=== PATIENT | female | born 1990 | race Caucasian/White ===

== ENCOUNTER 2018-09-27 20:50 | Inpatient (IN) | payer BC, OTHER ==
[2018-09-27] MEDS ORDERED: DINOPROSTONE 10 MG VAGINAL SUPPOSITORY VG ONE (21:30)
[2018-09-27 22:57] VITALS: BMI 37.9
[2018-09-27 23:12] LABS: BASO % 0.1 % (0-2.0); EOS % 1.3 % (0-4.5); HEMATOCRIT 38.1 % (32.4-45.2); HEMOGLOBIN 12.7 GM/dL (10.7-15.3); LYMPH % 31.4 % (8-40); MCHC 33.3 g/dl (32.0-36.0); MEAN CELL VOLUME 86.9 fl (80-96); MEAN PLT VOLUME 9.8 fl (7.5-11.1); MONO % 8.2 % (3.8-10.2); PLATELET COUNT 222 K/MM3 (134-434); RBC 4.39 M/mm3 (3.60-5.2); RDW 14.8 % (11.6-15.6); WHITE BLOOD COUNT 9.6 K/mm3 (4.0-10.0)
[2018-09-27 23:26] LABS: INR 0.99 (0.83-1.09); PROTHROMBIN TIME (PATIENT) 11.7 SEC (9.7-13.0)
[2018-09-27 23:28] LABS: ACTIVATED PTT 28.4 SECONDS (25.2-36.5)
[2018-09-27 23:35] LABS: ANION GAP 9 MMOL/L (8-16); BLOOD UREA NITROGEN 9 mg/dL (7-18); CALCIUM 8.7 mg/dL (8.5-10.1); CHLORIDE 107 mmol/L (98-107); CO2 22 mmol/L (21-32); CREATININE 0.6 mg/dL (0.55-1.3); GLUCOSE,RANDOM 95 mg/dL (74-106); POTASSIUM 3.8 mmol/L (3.5-5.1); SODIUM 138 mmol/L (136-145)
[2018-09-28] MEDS ORDERED: PROMETHAZINE HCL 25 MG/1 ML VIAL IVPUSH ONE (07:17)
[2018-09-28] MEDS ORDERED: BUTORPHANOL TARTRATE 1 MG/ML VIAL IVPB ONE (07:17)
[2018-09-28] MEDS ORDERED: TUBERCULIN PPD 5 TU/0.1ML SYRINGE (IN PATIENT USE ONLY) ID ONE (09:15)
--- NOTE | 2018-09-28 09:49 | HP ---
Past Medical History - Admission Chief Complaint: Here for labor induction History of Present Illness: 27 y/o with SIUP at 40.1 weeks here for elective IOL. Admitted overnight, cervidil placed by covering physician, cervix was closed. complicated only by GBS positivity. History Source: Patient, Medical Record Limitations to Obtaining History: No Limitations - Past Medical History [employer] ASSOCIATE: No: Migraine Cardiovascular: No: CAD, HTN Pulmonary: No: COPD, Sleep Apnea Gastrointestinal: No: GERD, Inflamatory Bowel Disease, Irritable Bowel Disease ...: 2 ...Para: 0 ...Term: 0 ...: 0 ...Spon : 0 ...Induced : 1 ...LMP: 12/27/17 ... Weeks Gestation by Dates: 39.1 ...EDC by Dates: 10/03/18 ...EDC by Sono: 09/26/18 Heme/Onc: No: Anemia Infectious Disease: No: HIV, MRSA, STD's Psych: No: Bipolar, Depression, Panic - Past Surgical History Past Surgical History: Yes: None Hx Myomectomy: No Hx Transabdominal Cerclage: No - Smoking History Smoking history: Never smoked - Alcohol/Substance Use History of Substance Use: reports: None - Social History Usual Living Arrangement: Yes: With Spouse ADL: Independent History of Recent Travel: No Home Medications - Allergies Allergies/Adverse Reactions: Allergies Allergy/AdvReac Type Severity Reaction Status Date / Time Penicillins Allergy Verified 09/28/18 02:32 - Home Medications Home Medications: Ambulatory Orders Pnv No.95/Ferrous Fum/Folic AC [ Vitamin Tablet] 1 each PO DAILY Review of Systems - Review of Systems Constitutional: reports: No Symptoms Eyes: reports: No Symptoms HENT: reports: No Symptoms Neck: reports: No Symptoms Cardiovascular: reports: No Symptoms Respiratory: reports: No Symptoms Gastrointestinal: reports: No Symptoms Genitourinary: reports: No Symptoms Breasts: reports: No Symptoms Reported Musculoskeletal: reports: No Symptoms Integumentary: reports: No Symptoms Neurological: reports: No Symptoms Endocrine: reports: No Symptoms Hematology/Lymphatic: reports: No Symptoms Psychiatric: reports: No Symptoms Physical Exam - Maternity Vital Signs: Vital Signs Temperature 98.2 F 09/28/18 06:00 Pulse Rate 81 09/28/18 08:00 Respiratory Rate 20 09/28/18 08:00 Blood Pressure 106/60 09/28/18 08:00 O2 Sat by Pulse Oximetry (%) Constitutional: Yes: Well Nourished, No Distress, Calm Eyes: Yes: Conjunctiva Clear, EOM Intact HENT: Yes: Atraumatic, Normocephalic Neck: Yes: Supple, Trachea Midline Cardiovascular: Yes: Regular Rate and Rhythm Lungs: Clear to auscultation - Abdominal Exam/OB Fundal Height: 40 Number of Fetuses: Single Presentation: Vertex Contractions: Yes Regularity: Regular Intensity: Mild/Mod Heart Rate (range): 135 Category: I Accelerations: Uniform Decelerations: None - Vaginal Exam/OB Vaginal Bleediing: Yes, Light Dilatation (cm): 1.5 Effacement (%): 70 Amniotic Membrane Status: Intact Presentation: Vertex/Position Station: -2 - Physical Exam Psychiatric: Yes: Alert, Oriented - Labs Lab Results: CBC, BMP 09/27/18 22:00 09/27/18 22:00 Problem List - Problems (1) Term Code(s): Z34.80 - ENCOUNTER FOR SUPRVSN OF NORMAL , UNSP TRIMESTER (2) GBS (group B Streptococcus carrier), +RV culture, currently Code(s): O99.820 - STREPTOCOCCUS B CARRIER STATE COMPLICATING Assessment/Plan 27 y/o with SIUP at 40.1 weeks here for elective IOL FHTS cat 1 s/p cervidil to start pitocin GBS positive, PCN allergy, will order vancomycin as no sensitivities done on sample
[2018-09-28] MEDS ORDERED: OXYTOCIN 30 UNITS in 0.9% NS 30 UNIT/500 ML INFUS.BAG IVPB SCH (10:00)
[2018-09-28] MEDS ORDERED: OXYTOCIN 30 UNITS in 0.9% NS 30 UNIT/500 ML INFUS.BAG IVPB ONE (12:01)
[2018-09-28] MEDS ORDERED: ELECTROLYTE-148 SOLN 1,000 ML IV SCH (12:45)
[2018-09-28] MEDS ORDERED: FENTANYL/BUPIVACAINE/NS/PF - PCEA - 50 ML DISP.SYRIN EP ONE ×2 (14:38→19:20)
[2018-09-28] MEDS ORDERED: NALOXONE HCL 0.4 MG/ML VIAL IVPUSH PRN (14:40)
[2018-09-28] MEDS ORDERED: LIDO 2%/EPI 1:200000 PRESRVFRE (20 ML SDVIAL) ONE (14:43)
[2018-09-28] MEDS ORDERED: FENTANYL/BUPIVACAINE/NS/PF - PCEA - 50 ML DISP.SYRIN EP SCH (14:45)
[2018-09-28] MEDS ORDERED: CLINDAMYCIN PHOSPHATE 600 MG/4 ML VIAL ONE (15:38)
--- NOTE | 2018-09-28 16:49 | PN ---
Ante-Partal Exam - Subjective Subjective: Pt comfortable with epidural Vital Signs: Vital Signs Temperature 98.0 F 09/28/18 14:40 Pulse Rate 68 09/28/18 16:30 Respiratory Rate 18 09/28/18 16:30 Blood Pressure 100/63 09/28/18 16:30 O2 Sat by Pulse Oximetry (%) 98 09/28/18 16:30 Bleeding: No Headache: No Visual changes: No Right upper quadrant pain: No Pain (scale 1-10): 0 - Contractions Contractions: Yes Regularity: Regular - Exam during Labor Heart Rate: 140 Variability: Moderate Category: I Monitor Accelerations: Present Monitor Decelerations: None Exam: Vaginal Dilatation (cm): 5 Effacement (%): 80 Amniotic Membrane Status: Bulging Presentation: Vertex Station: -1 - Assessment/Plan Assessment/Plan: s/p epidural continue pitocin doing well anticipate
[2018-09-28] MEDS ORDERED: LIDOCAINE HCL 1% PRESERVATIVE FREE - 30ML VIAL ONE (20:32)
[2018-09-28] MEDS ORDERED: OXYTOCIN 20 UNITS in 0.9% NS 20 UNIT/1,000 ML INFUS.BAG IV ONE (20:32)
[2018-09-28] MEDS ORDERED: BENZOCAINE 28 GM HEMORRHOIDAL OINTMENT TP PRN (20:33)
[2018-09-28] MEDS ORDERED: BISACODYL 10 MG SUPP.RECT RC PRN (20:33)
[2018-09-28] MEDS ORDERED: BENZOCAINE 20% 57 GM BOTTLE TP PRN (20:33)
[2018-09-28] MEDS ORDERED: WITCH HAZEL 50% (TUCKS) 40 PAD/JAR PAD TP PRN (20:33)
[2018-09-28] MEDS ORDERED: METHYLERGONOVINE MALEATE 0.2 MG/1 ML AMP IM PRN (20:33)
--- NOTE | 2018-09-28 20:40 | PN ---
Ante-Partal Exam - Subjective Subjective: Pt comfortable. Vital Signs: Vital Signs Temperature 98.1 F 09/28/18 19:00 Pulse Rate 76 09/28/18 18:45 Respiratory Rate 18 09/28/18 18:45 Blood Pressure 118/52 L 09/28/18 18:45 O2 Sat by Pulse Oximetry (%) 98 09/28/18 18:45 Bleeding: No Headache: No Visual changes: No Right upper quadrant pain: No - Contractions Contractions: Yes Regularity: Regular Intensity: Mod/Strong - Exam during Labor Heart Rate: 130 Variability: Moderate Category: I Monitor Accelerations: Present Monitor Decelerations: None Exam: Vaginal Dilatation (cm): 10 Effacement (%): 100 Amniotic Membrane Status: Ruptured Presentation: Vertex Station: +1 - Intrapartum Hemorrhage Risk Medium Risk Factors: None High Risk Factors: None Risk Score: 0 Risk Level: Low Risk - Assessment/Plan Assessment/Plan: To begin pushing
[2018-09-28] MEDS ORDERED: OXYTOCIN 20 UNITS in 0.9% NS 20 UNIT/1,000 ML INFUS.BAG IV SCH (20:45)
--- NOTE | 2018-09-28 22:12 | PN ---
Delivery - Delivery Vaginal Delivery: No Problems Type of Anesthesia: Epidural Episiotomy/Laceration: Periurethral Extnsion/lac, 2nd degree EBL (cc): 350 Delivery, Single - Stages of Labor Date of Delivery: 09/28/18 Time of Delivery: 09:36 Date Placenta Delivered: 09/28/18 Placenta: Yes: Spontaneous - Condition of Infant Electromechanisms Design Drafter/Nurse Administrator Present: No Gender: Female Position: Right, OA - 1 Minute Total Score: 4 5 Minutes Total Score: 9 - Feeding Plan Initial Plan: Elected not to breastfeed exclusively throughout hospitalization Remarks - Remarks Remarks: Uncomplicated from ARABELLA position across 2nd degree laceration anterior shoulder (left) delivered with ease along with remainder of 3vc noted, clamped and cut baby taken immediately to warmer to be assessed by nursery staff, apgars 4/9 assigned placenta delivered spontaneously and in tact 2nd degree laceration repaired with 2-0 vicryl periurethral laceration repaired with 4-0 vicryl, straight catheter placed after repair showing urethral patency sponge and needle count correct mom stable baby to well baby nursery
[2018-09-29] MEDS ORDERED: OXYTOCIN 20 UNITS in 0.9% NS 20 UNIT/1,000 ML INFUS.BAG IV ONE (00:11)
[2018-09-29] MEDS ORDERED: ACETAMINOPHEN 325 MG TABLET (FP) ONE ×3 (01:10→10:51)
[2018-09-29] MEDS ORDERED: IBUPROFEN 600 MG TABLET (FP) PO ONE ×3 (01:10→10:51)
[2018-09-29] MEDS: ACETAMINOPHEN 325 MG TABLET (FP) PO PRN ×5 (01:20→19:25)
[2018-09-29] MEDS: IBUPROFEN 600 MG TABLET (FP) PO PRN ×5 (01:20→19:26)
[2018-09-29 07:22] LABS: BASO % 0.1 % (0-2.0); EOS % 0.4 % (0-4.5); HEMATOCRIT 34.1 % (32.4-45.2); HEMOGLOBIN 11.4 GM/dL (10.7-15.3); LYMPH % 19.7 % (8-40); MCH 28.4 pg (25.7-33.7); MCHC 33.5 g/dl (32.0-36.0); MEAN CELL VOLUME 84.8 fl (80-96); MEAN PLT VOLUME 9.3 fl (7.5-11.1); MONO % 9.8 % (3.8-10.2); PLATELET COUNT 209 K/MM3 (134-434); RBC 4.02 M/mm3 (3.60-5.2); RDW 14.8 % (11.6-15.6); WHITE BLOOD COUNT 14.7 K/mm3 (4.0-10.0)
[2018-09-29] MEDS: FERROUS SO4 325 MG TABLET (FP) PO SCH ×3 (08:33→18:16)
--- NOTE | 2018-09-29 09:29 | PN ---
Post Progress Note - Subjective Subjective: Pt seen/examined and doing well. Pain controlled, currently without issues. Tolerating diet, ambulating and voiding. Passing flatus. Lochia rubra small amt. No other issues. Type of Delivery: Vital Signs: Vital Signs Temperature 98.4 F 09/29/18 08:00 Pulse Rate 100 H 09/29/18 08:00 Respiratory Rate 18 09/29/18 08:00 Blood Pressure 115/60 09/29/18 08:00 O2 Sat by Pulse Oximetry (%) 97 09/28/18 23:15 Breast Exam: Yes: Soft Uterus: Yes: Fundus Firm Abdomen/GI: Yes: Abdomen soft, Tolerating PO Lochia: Yes: Rubra Lochia, amount: Small Perineum: Yes: Laceration (well approximated) Activity: Ambulating - Labs Labs: CBC WBC 14.7 K/mm3 (4.0-10.0) H 09/29/18 06:00 RBC 4.02 M/mm3 (3.60-5.2) 09/29/18 06:00 Hgb 11.4 GM/dL (10.7-15.3) 09/29/18 06:00 Hct 34.1 % (32.4-45.2) 09/29/18 06:00 MCV 84.8 fl (80-96) 09/29/18 06:00 MCH 28.4 pg (25.7-33.7) 09/29/18 06:00 MCHC 33.5 g/dl (32.0-36.0) 09/29/18 06:00 RDW 14.8 % (11.6-15.6) 09/29/18 06:00 Plt Count 209 K/MM3 (134-434) 09/29/18 06:00 MPV 9.3 fl (7.5-11.1) 09/29/18 06:00 Absolute Neuts (auto) 10.3 K/mm3 (1.5-8.0) H 09/29/18 06:00 Neutrophils % 70.0 % (42.8-82.8) 09/29/18 06:00 Lymphocytes % 19.7 % (8-40) D 09/29/18 06:00 Monocytes % 9.8 % (3.8-10.2) 09/29/18 06:00 Eosinophils % 0.4 % (0-4.5) 09/29/18 06:00 Basophils % 0.1 % (0-2.0) 09/29/18 06:00 Nucleated RBC % 0 % (0-0) 09/29/18 06:00 Problem List - Problems (1) Term Code(s): Z34.80 - ENCOUNTER FOR SUPRVSN OF NORMAL , UNSP TRIMESTER (2) GBS (group B Streptococcus carrier), +RV culture, currently Code(s): O99.820 - STREPTOCOCCUS B CARRIER STATE COMPLICATING (3) Normal vaginal delivery Code(s): O80 - ENCOUNTER FOR FULL-TERM UNCOMPLICATED DELIVERY Assessment/Plan 27 y/o PPD#1 s/p normal , doing well Hgb 11.4 regular diet PO pain meds ambulation routine care
[2018-09-29] MEDS: PRENATAL VITAMINS W/ FOLIC ACID TABLET (FP) PO SCH (10:05)
[2018-09-29] MEDS ORDERED: SENNOSIDES/DOCUSATE COMBO (SENNA PLUS) TABLET (UD) PO PRN (22:00)
[2018-09-30] MEDS: IBUPROFEN 600 MG TABLET (FP) PO PRN ×2 (00:12→06:04)
[2018-09-30] MEDS: ACETAMINOPHEN 325 MG TABLET (FP) PO PRN ×2 (00:12→06:04)
--- NOTE | 2018-09-30 08:51 | DS ---
Physical Exam-[employer]ESS [employer]T MAKER Vital Signs: Vital Signs Temperature 97.9 F 09/29/18 22:00 Pulse Rate 77 09/29/18 22:00 Respiratory Rate 18 09/29/18 22:00 Blood Pressure 131/68 09/29/18 22:00 O2 Sat by Pulse Oximetry (%) 97 09/28/18 23:15 Constitutional: Yes: Well Nourished, No Distress, Calm Eyes: Yes: Conjunctiva Clear, EOM Intact HENT: Yes: Atraumatic Neck: Yes: Supple Cardiovascular: Yes: Regular Rate and Rhythm Respiratory: Yes: Regular Gastrointestinal: Yes: Normal Bowel Sounds ....Post : Yes: Uterus firm, Uterus non-tender Neurological: Yes: Alert, Oriented Psychiatric: Yes: Alert, Oriented Labs: CBC, BMP 09/29/18 06:00 09/27/18 22:00 Delivery - Delivery Vaginal Delivery: No Problems Type of Anesthesia: Epidural Episiotomy/Laceration: Vaginal Extension/lac, 2nd degree EBL (cc): 350 Delivery, Single - Stages of Labor Date 1st Stage Initiatied: 09/28/18 Time 1st Stage Initiated: 13:00 Date 2nd Stage Initiated: 09/28/18 Time 2nd Stage Initiated: 20:35 Date of Delivery: 09/28/18 Time of Delivery: 21:36 Time Placenta Delivered: 21:50 Placenta: Yes: Spontaneous - Condition of Press Room Supervisor/Wig Dresser Present: [place]: Daquan Velazquez Gender: Female Weight: 8 lb 5 oz Position: Right, OA Total Hours ROM (Hrs/Mins): 4hrs/5min - 1 Minute Total Score: 4 5 Minutes Total Score: 9 - Feeding Plan Initial Plan: Elected not to breastfeed exclusively throughout hospitalization Discharge Summary Reason For Visit: INDUCTION OF LABOR Current Active Problems GBS (group B Streptococcus carrier), +RV culture, currently (Acute) Normal vaginal delivery (Acute) Term (Acute) Hospital Course: Pt admitted on 09/27/2018 for elective induction of labor. She then underwent an uncomplicated on 09/28/18. Her post course was uncomplicated and she was discharged home on post day 2. Condition: Good - Instructions Diet, Activity, Other Instructions: Physical activity Resume your normal everyday activity as tolerated no heavy lifting or exercise until seen by your surgeon. You may walk unlimited ed of and climb stairs. You may resume driving the car when you feel safe and comfortable behind the wheel. No sexual activity as instructed. Wound care If you have a bandage, leave it on, and keep dry for 48-72 hours. After that time discard the outer bandage. If they are tapes on the skin under the out of bandage leave them in place. They will peel off in the next 7 to 10 days. Do Not Peel them off. You may shower the day after surgery. If there are tapes present on the skin, you may shower over them. Diet There are no dietary restrictions. Eat healthy, high-fiber foods. Drink 6 to 8 glasses of liquid each day. This will assist in keeping your bowels are regular. Pain management You may take Tylenol or acetaminophen or Ibuprofen (for example, Motrin, Advil etc.) from my pain prescription medication is ordered should be taken as prescribed for moderate to severe pain. Call MD for any of the following: Severe pain not relieved by medication Fever of 101 or higher Excessive bleeding or drainage on dressing Inability to urinate Disposition: HOME - Home Medications Comprehensive Discharge Medication List: Ambulatory Orders Pnv No.95/Ferrous Fum/Folic AC [ Vitamin Tablet] 1 each PO DAILY
[2018-09-30] MEDS: FERROUS SO4 325 MG TABLET (FP) PO SCH (09:16)
[2018-09-30] MEDS: PRENATAL VITAMINS W/ FOLIC ACID TABLET (FP) PO SCH (09:16)
[2018-09-30 12:22] VITALS: BP 114/64; PULSE 70; TEMP 98.2
== END 2018-09-30 11:45 | disposition home or self-care (01) | DRG 807 ==
LOC: JLDR 20:50 → J3W 09-29 15:00
PROVIDERS: ADMIT Obstetrics & Gynecology; ATTEND Obstetrics & Gynecology
PROC: 3E0P7VZ Introduction of Hormone into Female Reproductive, Via Natural or Artificial Opening (ICD-10-PCS; 2018-09-27)
PROC: 10E0XZZ Delivery of Products of Conception, External Approach (ICD-10-PCS; principal; 2018-09-28)
PROC: 0KQM0ZZ Repair Perineum Muscle, Open Approach (ICD-10-PCS; 2018-09-28)
DX: O99.824 Streptococcus B carrier state complicating childbirth (principal); Z37.0 Single live birth; O48.0 Post-term pregnancy; O70.1 Second degree perineal laceration during delivery; Z3A.40 40 weeks gestation of pregnancy; Z88.0 Allergy status to penicillin
CPT/HCPCS: 36415; 59409; 80048; 85025; 85610; 85730; 86593; 86850; 86900; 86901

== ENCOUNTER 2022-09-23 05:32 | Day surgery (SDC) | payer BC, OTHER ==
[2022-09-21 14:16] VITALS: BMI 30.4
[~2022-09-23 05:32] MED LIST: FERRIC SUBSULFATE 500 ML BOTTLE TP ONE; IODINE/POTASSIUM IODIDE 5%/10% 14 ML BOTTLE NR ONE
[2022-09-23] MEDS ORDERED: MIDAZOLAM HCL 2 MG/2 ML SINGLE DOSE VIAL ONE (12:35)
[2022-09-23] MEDS ORDERED: PROPOFOL 20 ML ONE (12:51)
[2022-09-23] MEDS ORDERED: SILVER NITRATE 75% APPLIC STCK 1 PKT EACH TP ONE (12:53)
[2022-09-23] MEDS ORDERED: IODINE/POTASSIUM IODIDE 5%/10% 14 ML BOTTLE NR ONE ×2 (12:53)
[2022-09-23] MEDS ORDERED: FERRIC SUBSULFATE 500 ML BOTTLE TP ONE ×2 (12:53)
[2022-09-23] MEDS ORDERED: ACETAMINOPHEN 325 MG TABLET (FP) PO PRN (13:11)
[2022-09-23] MEDS ORDERED: IBUPROFEN 400 MG TABLET (FP) PO PRN (13:11)
[2022-09-23 15:17] VITALS: RESP 18
[2022-09-23 15:41] VITALS: BP 124/73; PULSE 77; TEMP 98.6
== END 2022-09-23 16:03 | disposition home or self-care (01) ==
LOC: JASU-SURG 05:32
PROVIDERS: ATTEND Specialist
PROC: 0UBC7ZX Excision of Cervix, Via Natural or Artificial Opening, Diagnostic (ICD-10-PCS; principal; 2022-09-23 10:20)
DX: D06.0 Carcinoma in situ of endocervix (principal); R87.810 Cervical high risk human papillomavirus (HPV) DNA test positive
CPT/HCPCS: 81025; 88307-TC; 94760